=== PATIENT | male | born 1960 | race Caucasian/White ===

== ENCOUNTER → 2017-08-18 | Outpatient (CLI) | payer BC ==
[2017-08-18 08:47] LABS: ALBUMIN 3.5 g/dL (3.4-5.0); ALBUMIN/GLOBULIN RATIO 0.9 (1.0-1.7); CALCIUM 8.6 mg/dL (8.5-10.1); TOTAL PROTEIN 7.4 g/dL (6.4-8.2)
[2017-08-18 08:48] LABS: GFR 77.9; POTASSIUM 4.7 mmol/L (3.5-5.1); TOTAL BILIRUBIN 0.7 mg/dL (0.2-1.0)
== END | disposition home or self-care (01) ==
LOC: LAB 07:05
PROVIDERS: ATTEND Nurse Practitioner
DX: E78.5 Hyperlipidemia, unspecified (principal)
CPT/HCPCS: 36415; 80053; 80061

== ENCOUNTER → 2021-08-07 | Outpatient (CLI) | payer OTHER, BC ==
--- NOTE | 2021-08-07 17:09 | RAD ---
Examination: Left Lower Extremity Venous Doppler Ultrasound History: Left lower extremity pain, swelling Comparison: None Procedure: Posey scale, color flow 2D and spectal waveform analysis images are obtained with and witho ut compression in the area of the common femoral vein, superficial femoral vein - femoral vein juncti on, main femoral vein (superficial femoral vein) and popliteal vein. Veins of the proximal calf are a lso imaged. Findings: There is normal duplex flow, color flow and compressibility of all visualized vein segments. No evide nce of deep venous thrombus is present. There is a 3.5 cm heterogeneous echogenicity identified in th e calf without vascular flow within likely hematoma. Impression: 1.No evidence of DVT in the left lower extremity venous system. 2. A 3.5 cm heterogeneous echogenicity identified in the calf without vascular flow within likely hem atoma. Electronically signed by: Frantz Lopez MD (08/07/2021 5:06 PM) [id number]
== END ==
LOC: US 15:41
PROVIDERS: ATTEND Family Medicine
DX: M79.605 Pain in left leg (principal); R22.42 Localized swelling, mass and lump, left lower limb
CPT/HCPCS: 93971